=== PATIENT | female | born 2000 | race Caucasian/White ===

== ENCOUNTER 2021-07-16 13:37 | Emergency (ER) | payer SELFPAY ==
[~2021-07-16] VITALS: Ht 152.4 cm; Wt 46.7 kg
[2021-07-16 13:47] VITALS: BP 114/59
[2021-07-16] MEDS ORDERED: BACITRACIN OINT 500 UNITS/GM PKT TP ONE (14:05)
[2021-07-16] MEDS ORDERED: LIDOCAINE MPF 1% 10 MG/ML VIAL INJ ONE (14:05)
--- NOTE | 2021-07-16 14:49 | NUR ---
21 Y/O FEMALE BIB SELF C/O SWELLING AND PAIN IN THE RIGHT THUMB, NOTED SOME GREEN PUS ON THE SIDE OF THE NAIL. STATED THAT SHE CUT THE EDGE OF THE THUMB WITH A DECISION UNIT RN 2 DAYS AGO. [facility]: DENIES
--- NOTE | 2021-07-16 15:14 | NUR ---
NATTY COLLAZO AT BEDSIDE FOR PROCEDURE
[2021-07-16] MEDS ORDERED: CEPH-588 PO (15:30)
[2021-07-16] MEDS ORDERED: BACI1PAC6 TP (15:30)
--- NOTE | 2021-07-16 15:39 | NUR ---
PT WOUND CLEANED WITH NORMAL SALINE AND WRAPPED WITH NON-ADHERENT GAUZE AND TAPE.
[2021-07-16 15:47] VITALS: BP 119/69
--- NOTE | 2021-07-16 15:48 | NUR ---
Patient discharged with v/s stable. Written and verbal after care instructions given and explained. Patient alert, oriented and verbalized understanding of instructions. Ambulatory with steady gait. All questions addressed prior to discharge. ID band removed. Patient advised to follow up with PMD. Rx of BACITRACIN OINT,KEFLEX given. Patient educated on indication of medication including possible reaction and side effects. Opportunity to ask questions provided and answered.
== END 2021-07-16 15:48 | disposition home or self-care (01) ==
LOC: MED 13:37
DX: L03.011 Cellulitis of right finger (principal); Z79.899 Other long term (current) drug therapy
CPT/HCPCS: 10060; 99283; J2001